=== PATIENT | male | born 2005 | race Caucasian/White ===

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

== ENCOUNTER → 2023-04-14 | Outpatient (CLI) | payer BC ==
--- NOTE | 2023-04-14 20:05 | FL ---
MODIFIED SWALLOW / DEGLUTITION STUDY EXAMINATION TYPE: FL barium swallow w video DATE OF EXAM: 04/14/2023 CLINICAL HISTORY: 17-year-old male R13.10, unspecified Dysphagia. Sensation of solids sticking in the throat and mid chest. TECHNIQUE: Deglutition study is performed utilizing thin liquid barium, barium thick applesauce, and barium coated cracker. Total fluoroscopy time: 52 seconds. Total images: None. Real-time fluoroscopy support was provided to speech pathology. Total dose: 7.5 mGycm2 COMPARISON: None. FINDINGS: The oral and pharyngeal phases show satisfactory initiation and propagation with all modalities teste d. Normal mastication is seen with solid modalities tested. There is no evidence of penetration or aspiration with any modality tested. No significant pharyngeal residue was appreciated. Additional AP imaging was performed and shows solid retained within the mid thoracic esophagus with d elayed clearance. IMPRESSION: 1. No penetration or aspiration. 2. However, on additional AP imaging, solids were retained within the midthoracic esophagus at the le michael of patient complaint. This may reflect some underlying esophageal dysmotility. No obvious strictu re was seen on initial assessment. A dedicated esophagram could further evaluate. Please refer to speech therapist notes for further details if necessary.
== END | disposition home or self-care (01) ==
LOC: RADFLMAIN 10:51
PROVIDERS: ATTEND Family Medicine
DX: R13.10 Dysphagia, unspecified (principal)
CPT/HCPCS: 74230